=== PATIENT | female | born 1985 | race Caucasian/White ===

== ENCOUNTER 2017-05-21 11:41 | Emergency (ER) | payer BC ==
[~2017-05-21] VITALS: Ht 154.9 cm; Wt 85.0 kg
[2017-05-21 11:49] VITALS: BP 135/71; PULSE 108; RESP 16; TEMP 100.4; O2SAT 98
[2017-05-21] MEDS ORDERED: LEVO-86 PO (12:03)
[2017-05-21] MEDS ORDERED: MONT10TA2 PO (12:03)
--- NOTE | 2017-05-21 12:06 | PD ---
HPI Chief Complaint: Cold / Flu Symptoms Time Seen by Provider: 11:54 Travel History International Travel<30 days: No Contact w/Intl Traveler<30days: No Traveled to known affect area: No History of Present Illness HPI 31-year-old female approximately 7 weeks , LMP 03/30/17, here for evaluation of possible fever, upper respiratory symptoms, sore throat, generalized malaise. Symptoms started yesterday. The patient has taken Tylenol , last dose was around 4:30 this morning. She denies vomiting or diarrhea. Cough is nonproductive. No abdominal pain. No vaginal bleeding or discharge. She is scheduled for her first [facility] appointment on 06/05/17. She has not yet had an ultrasound to confirm an IUP. PFSH Past Medical History ?: LMP: 7 WEEKS Social History Tobacco Use: No Allergies-Medications (Allergen,Severity, Reaction): Coded Allergies: codeine (Verified Allergy, Unknown, 05/21/17) Reported Meds & Prescriptions Reported Meds & Active Scripts Active Tamiflu (Oseltamivir Phosphate) 75 Mg Cap 75 Mg PO BID 5 Days Reported Singulair (Montelukast Sodium) 10 Mg Tab 10 Mg PO HS Synthroid (Levothyroxine Sodium) 137 Mcg Tab 137 Mcg PO DAILY Review of Systems Except as stated in HPI: all other systems reviewed are Neg Physical Exam Narrative GENERAL: Well-developed, well-nourished, comfortable, no apparent distress. Overall well-appearing. SKIN: Focused skin assessment warm/dry. No rash. HEAD: Atraumatic. Normocephalic. EYES: Pupils equal and round. No scleral icterus. No injection or drainage. ENT: No nasal bleeding or discharge. Mucous membranes pink and moist. Pharynx with moderate erythema without tonsillar exudates. Uvula is midline. No drooling or stridor. Normal phonation. Bilateral tympanic membrane and external auditory canals are normal. NECK: Trachea midline. No JVD. No nuchal rigidity. CARDIOVASCULAR: Regular rate and rhythm. RESPIRATORY: No accessory muscle use. Clear to auscultation. Breath sounds equal bilaterally. GASTROINTESTINAL: Abdomen soft, non-tender, nondistended. Hepatic and splenic margins not palpable. MUSCULOSKELETAL: No obvious deformities. No clubbing. No cyanosis. No edema. NEUROLOGICAL: Awake and alert. No obvious cranial nerve deficits. Motor grossly within normal limits. Normal speech. PSYCHIATRIC: Appropriate mood and affect; insight and judgment normal. Data Data Last Documented VS Vital Signs Date Time Temp Pulse Resp B/P (MAP) Pulse Ox O2 Delivery O2 Flow Rate FiO2 05/21/17 14:50 103 105/68 (80) 99 05/21/17 13:30 20 Room Air 05/21/17 11:49 100.4 Orders Orders Complete Blood Count With Diff (05/21/17 12:02) Comprehensive Metabolic Panel (05/21/17 12:02) Urinalysis - C+S If Indicated (05/21/17 12:02) Iv Access Insert/Monitor (05/21/17 12:02) Ecg Monitoring (05/21/17 12:02) Oximetry (05/21/17 12:02) Sodium Chloride 0.9% Flush (Ns Flush) (05/21/17 12:15) Influenzae A/B Antigen (05/21/17 12:02) Group A Rapid Strep Screen (05/21/17 12:02) Acetaminophen (Tylenol) (05/21/17 12:15) Beta Hcg (Quant/Titer) (05/21/17 12:07) Strep Culture (Group A) (05/21/17 12:30) Sodium Chlor 0.9% 1000 Ml Inj (Ns 1000 M (05/21/17 13:15) Oseltamivir (Tamiflu) (05/21/17 13:15) Ed Discharge Order (05/21/17 13:50) Labs Laboratory Tests Test 05/21/17 12:30 05/21/17 12:34 White Blood Count 6.9 TH/MM3 Red Blood Count 4.33 MIL/MM3 Hemoglobin 12.9 GM/DL Hematocrit 38.1 % Mean Corpuscular Volume 87.9 FL Mean Corpuscular Hemoglobin 29.8 PG Mean Corpuscular Hemoglobin Concent 33.9 % Red Cell Distribution Width 11.7 % Platelet Count 275 TH/MM3 Mean Platelet Volume 8.0 FL Neutrophils (%) (Auto) 82.1 % Lymphocytes (%) (Auto) 6.8 % Monocytes (%) (Auto) 10.0 % Eosinophils (%) (Auto) 0.9 % Basophils (%) (Auto) 0.2 % Neutrophils # (Auto) 5.6 TH/MM3 Lymphocytes # (Auto) 0.5 TH/MM3 Monocytes # (Auto) 0.7 TH/MM3 Eosinophils # (Auto) 0.1 TH/MM3 Basophils # (Auto) 0.0 TH/MM3 CBC Comment DIFF FINAL Differential Comment Blood Urea Nitrogen 7 MG/DL Creatinine 0.69 MG/DL Random Glucose 82 MG/DL Total Protein 8.5 GM/DL Albumin 3.8 GM/DL Calcium Level 9.1 MG/DL Alkaline Phosphatase 86 U/L Aspartate Amino Transf (AST/SGOT) 18 U/L Alanine Aminotransferase (ALT/SGPT) 25 U/L Total Bilirubin 0.4 MG/DL Sodium Level 134 MEQ/L Potassium Level 3.6 MEQ/L Chloride Level 101 MEQ/L Carbon Dioxide Level 24.4 MEQ/L Anion Gap 9 MEQ/L Estimat Glomerular Filtration Rate 100 ML/MIN Human Chorionic Gonadotropin, Quant 00441 MIU/ML Urine Collection Type CLEAN CATCH Urine Color YELLOW Urine Turbidity CLEAR Urine pH 7.0 Urine Specific [place] 1.018 Urine Protein NEG mg/dL Urine Glucose (UA) NEG mg/dL Urine Ketones NEG mg/dL Urine Occult Blood NEG Urine Nitrite NEG Urine Bilirubin NEG Urine Leukocyte Esterase NEG Urine RBC 0-3 /hpf Urine Squamous Epithelial Cells 0-5 /hpf Urine Bacteria OCC /hpf Microscopic Urinalysis Comment CULT NOT INDICATED Urine Collection Time 12:34 [facility] Medical Decision Making Medical Screen Exam Complete: Yes Emergency Medical Condition: Yes Differential Diagnosis Influenza, URI, viral illness, strep pharyngitis, pneumonia, bronchitis Narrative Course Initial vital signs show heart rate 108, blood pressure 135/71, pulse ox 98% on room air, oral temp of 100.4F. Bedside transabdominal ultrasound performed by me shows an early IUP with a normal-appearing FHR. CBC: WBC 6.9, hemoglobin 12.9, hematocrit 38.1, platelets 275, neutrophils 82%, lymphocytes 6.8%, monocytes 10%. CMP is unremarkable. Beta hCG is 48,000. UA is not suggestive of UTI. Influenza is negative. Group A strep is negative. Although influenza is negative, it is the height of flu season right now, and I believe she does have the flu. Because she is , I will start her on Tamiflu. She is otherwise well-appearing. Her heart rate improved to 98 without any intervention. She was given a liter of normal saline IV. She has an appointment with an [facility] physician in 2 weeks. She was advised to follow- up with a primary care physician this week. She was informed on when to return to the emergency department. She verbalizes understanding and agreement with plan. Procedures Procedure Narrative Bedside transabdominal ultrasound: Using the curvilinear ultrasound probe, a bedside transabdominal ultrasound was performed and shows a normal-appearing early IUP with a normal-appearing heart rate. Diagnosis Primary Impression: Influenza-like illness Additional Impression: Qualified Codes: Z3A.01 - Less than 8 weeks gestation of Referrals: [facility] Primary Care Physician 3 days Additional Instructions: Follow-up with a primary care physician this week. Follow-up with your [facility] physician as scheduled. Stay hydrated with plenty of fluids. Return to the emergency department for worsening symptoms or any other concerns. Scripts Oseltamivir (Tamiflu) 75 Mg Cap 75 MG PO BID for Mgmt Viral Infection for 5 Days, #10 CAP 0 Refills Prov: Michael Campos MD 05/21/17 Disposition: 01 DISCHARGE HOME Condition: Stable Michael Campos MD May 21, 2017 12:06
[2017-05-21] MEDS ORDERED: ACETAMINOPHEN 325 MG TAB PO ONE (12:15)
[2017-05-21] MEDS ORDERED: SODIUM CHLORIDE 0.9% FLUSH 10 ML FLUSH IV FLUSH PRN (12:15)
[2017-05-21 12:38] LABS: AUTOMATED NEUTROPHIL # 5.6 TH/MM3 (1.8-7.7); BASOPHIL % 0.2 % (0.0-2.0); EOSINOPHIL # 0.1 TH/MM3 (0-0.4); EOSINOPHIL % 0.9 % (0.0-4.0); HEMATOCRIT 38.1 % (35.0-46.0); HEMOGLOBIN 12.9 GM/DL (11.6-15.3); LYMPH % 6.8 % (9.0-44.0); LYMPHOCYTE # 0.5 TH/MM3 (1.0-4.8); MEAN CELL VOLUME 87.9 FL (80.0-100.0); MEAN CORPUSCULAR HEMOGLOBIN 29.8 PG (27.0-34.0); MEAN CORPUSCULAR HGB CONC 33.9 % (32.0-36.0); MONOCYTE # 0.7 TH/MM3 (0-0.9); NEUT % 82.1 % (16.0-70.0); PLATELET COUNT 275 TH/MM3 (150-450); RED BLOOD COUNT 4.33 MIL/MM3 (4.00-5.30); RED CELL DISTRIBUTION WIDTH 11.7 % (11.6-17.2); WHITE BLOOD COUNT 6.9 TH/MM3 (4.0-11.0)
[2017-05-21 12:45] LABS: CHLORIDE 101 MEQ/L (98-107); SODIUM (NA) 134 MEQ/L (136-145)
[2017-05-21 12:47] LABS: BILIRUBIN, URINE NEG (NEG); BLOOD, URINE NEG (NEG); GLUCOSE,URINE NEG (NEG); KETONE, URINE NEG (NEG); NITRITE,URINE NEG (NEG); URINE LEUKOCYTE ESTERASE NEG (NEG)
[2017-05-21 12:48] LABS: CALCIUM 9.1 MG/DL (8.5-10.1)
[2017-05-21 12:49] LABS: ALBUMIN 3.8 GM/DL (3.4-5.0); BICARBONATE 24.4 MEQ/L (21.0-32.0); BLOOD UREA NITROGEN 7 MG/DL (7-18); GLUCOSE,RANDOM 82 MG/DL (74-106)
[2017-05-21 12:52] LABS: ALT (GPT) 25 U/L (10-53); AST (GOT) 18 U/L (15-37); CREATININE 0.69 MG/DL (0.50-1.00); GLOMERULAR FILTRATION RATE 100 ML/MIN (>89)
[2017-05-21 12:53] LABS: TOTAL BILIRUBIN ADULT 0.4 MG/DL (0.2-1.0); TOTAL PROTEIN 8.5 GM/DL (6.4-8.2)
[2017-05-21 12:54] LABS: BACTERIA, URINE OCC /hpf; RBC, URINE 0-3 /hpf (0-3); SQUAMOUS EPITHELIAL CELL URINE 0-5 /hpf (0-5); URINE COLOR YELLOW (YELLW/STRAW)
[2017-05-21 12:55] LABS: ALKALINE PHOSPHATASE 86 U/L (45-117)
[2017-05-21] MEDS ORDERED: OSEL75 PO (13:12)
[2017-05-21] MEDS ORDERED: SODIUM CHLOR 0.9% 1000 ML INJ 1,000 ML IV ONE (13:15)
[2017-05-21] MEDS ORDERED: OSELTAMIVIR PHOSPHATE 75 MG CAP PO ONE (13:15)
[2017-05-21 13:30] VITALS: BP 117/76; PULSE 90; RESP 20; O2SAT 98
[2017-05-21 13:33] VITALS: PULSE 90; O2SAT 98
[2017-05-21 14:50] VITALS: BP 105/68
== END 2017-05-21 14:55 | disposition home or self-care (01) ==
LOC: PHED 11:41
DX: J02.9 Acute pharyngitis, unspecified (principal); O99.511 Diseases of the respiratory system complicating pregnancy, first trimester; R05 Cough; Z3A.08 8 weeks gestation of pregnancy; Z88.5 Allergy status to narcotic agent
CPT/HCPCS: 80053; 81001; 84702; 85025; 87081; 87804; 87880; 99284; J7030

== ENCOUNTER → 2017-07-06 | Outpatient (CLI) | payer BC ==
[~2017-07-06] MED LIST: LEVO-86 PO; MONT10TA2 PO; OSEL75 PO
--- NOTE | 2017-07-07 18:11 | HM ---
Date Performed: 07/06/2017 Time Performed: 09:09:00 HOOKUP DATE: 07/06/17 09:09:00 AM [facility] ANALYSIS START TIME: 07/06/2017 9:14:00 AM ANALYSIS END TIME: 07/07/2017 9:18:00 AM PATIENT AGE: 31 PATIENT HEIGHT PATIENT WEIGHT DRUG LIST PATIENT DIAGNOSIS TEST NARRATIVE: The patient's average heart rate was 79 BPM. Heart rates greater than 120 B PM were noted 1% of the time. No episodes of bradycardia were noted. No pauses exceeding 2.0 sec onds were noted. 8498 ventricular ectopics, which represented 7% of the total beat count, were no justin. The highest ventricular ectopic frequency occurred from 04:00 PM to 05:00 PM [facility]. During this time 646 VE(s) occurred. Ventricular ectopics were observed as 8482 isolated beat(s) and as 8 couple t(s). No runs were noted. Some of the ventricular beats occurred in bigeminal cycles. 15 suprav entricular ectopics, which represented < 1% of the total beat count, were noted. The highest suprave ntricular ectopic frequency occurred from 04:00 AM to 05:00 AM Fri. During this time 12 SVE(s) occur red. No episodes of ST depression (defined as -1.0 mm or more) were noted in channel 1. No episo esvin of ST depression (defined as -1.0 mm or more) were noted in channel 2. No episodes of ST depress ion (defined as -1.0 mm or more) were noted in channel 3. TEST INTERPRETATION: The patient had multiple listings for palpitations which all correlated to normal Sinus rhythm . The predominant was sinus rhythm throughout the study. 8 couplets were noted throughout the study. No ventricular runs, pauses, or atrial fibrillation was appreciated. Conclusions: Predominant rhythm was sinus. Palpitations correlated to normal sinus rhythm. 8 ventricular couplets noted. Signed by : Kira Rossi
== END ==
LOC: HCAV 08:30
PROVIDERS: ATTEND Obstetrics & Gynecology
DX: O26.892 Other specified pregnancy related conditions, second trimester (principal); R00.2 Palpitations; Z34.02 Encounter for supervision of normal first pregnancy, second trimester
CPT/HCPCS: 93225; 93226